=== PATIENT | female | born 1930 | race Caucasian/White ===

== ENCOUNTER 2016-10-21 21:17 | Emergency (ER) | payer MEDICARE, BC ==
[~2016-10-21 21:17] MED LIST: ASA5GR PO; ASAB PO; C5 PO; CAT1 PO; CENTRUM TAB1 TAB PO; CO Q-10 OTC PO; CO Q-10100 MG PO; COZAAR100 MG PO; FISH OIL1200 MG PO; GLUCOPHAGE1000 MG PO; GLUCOTRO10 PO; GLUCPH PO; LIPITOR20 PO; LIPITOR80 MG PO; LOP50 PO; LOPID6 PO; MAGNESIUM OTC PO; MULTIVIT/MIN PO; MULTIVITAMIN PO; NORV10 PO; PLAVIX PO; POTASSIUM 595 MG PO; PRESERVISION A1 EACH PO; PRESERVISION ARED PO; PROBIOTIC OTC PO; RESTORIL30 MG PO; SYN.05 PO; ULTRAM50 PO; VITE PO; ZOCOR20 PO
[2016-12-14] MEDS ORDERED: COUMADIN7.5 MG PO (16:00)
[2016-12-14] MEDS ORDERED: PRIN10 PO (16:08)
[2016-12-14] MEDS ORDERED: CRANBERRY500 MG PO (16:08)
[2016-12-14] MEDS ORDERED: VITC500 PO (16:09)
[2016-12-14] MEDS ORDERED: FISH OIL1200 MG PO (16:09)
== END 2016-10-21 21:24 | disposition home or self-care (01) ==
LOC: ER 21:17
DX: T18.128A Food in esophagus causing other injury, initial encounter (principal); I10 Essential (primary) hypertension; I48.91 Unspecified atrial fibrillation; E10.9 Type 1 diabetes mellitus without complications; I25.10 Atherosclerotic heart disease of native coronary artery without angina pectoris; Z88.2 Allergy status to sulfonamides; Z86.73 Personal history of transient ischemic attack (TIA), and cerebral infarction without residual deficits; Z79.82 Long term (current) use of aspirin; Z79.899 Other long term (current) drug therapy
CPT/HCPCS: 80048; 80053; 83735; 84484; 85025; 85610; 85730; 99284

== ENCOUNTER 2017-01-02 09:56 | Day surgery (SDC) | payer MEDICARE, BC ==
--- NOTE | ~2017-01-02 | EGD ---
EGD REPORT [facility] [address] [address] NAME: ROLA RUSSELL : [birth year] STATUS : [facility]#: [id number] AGE: 86 ADM/REG DATE : 01/02/17 MR#: [id number] REPORT SERV DATE: 01/25/17 DICTATED BY: CODY CEDILLO DATE: 01/25/17 REPORT STATUS : Draft [facility] DATE: 01/25/17 Endoscopy Center Patient Name: Rola Russell Date of : 1930 Attending MD: CODY CEDILLO MD Procedure Date No Time: 01/02/2017 Procedure: Upper GI endoscopy Indications: Dysphagia Referring MD: Ashkan Ibrahim Medicines: as per anesthesia Complications: No immediate complications. Procedure: Pre-Anesthesia Assessment: - ASA Grade Assessment: III - A patient with severe systemic disease. After obtaining informed consent, the endoscope was passed under direct vision. Throughout the procedure, the patient's blood pressure, pulse, and oxygen saturations were monitored continuously. The GIF H190 [id number] was introduced through the mouth, and advanced to the third part of duodenum. The upper GI endoscopy was accomplished without difficulty. The patient tolerated the procedure. Findings: A mild Schatzki ring (acquired) was found at the gastroesophageal junction. The scope was withdrawn. Dilation was performed with a Pisano dilator with no resistance at 44 Fr. Localized mild inflammation characterized by erythema was found in the gastric antrum. The cardia and gastric fundus were normal on retroflexion. The examined duodenum was normal. Impression: - Mild Schatzki ring. Dilated. - Gastritis. - Normal examined duodenum. Recommendation: - Use Prilosec (omeprazole) 20 mg PO daily for 1 month. Procedure Code(s): --- Professional --- 49345, Esophagogastroduodenoscopy, flexible, transoral; diagnostic, including collection of specimen(s) by brushing or washing, when performed (separate procedure) 23867, Dilation of esophagus, by unguided sound or bougie, single or multiple passes EGD REPORT [facility] [address] [place]. [address] NAME: ROLA RUSSELL : [birth year] STATUS : [facility] PAT#: [id number] AGE: 86 ADM/REG DATE : 01/02/17 MR#: [id number] REPORT SERV DATE: 01/25/17 DICTATED BY: CODY CEDILLO. DATE: 01/25/17 REPORT STATUS : Draft TRANSCRIBED BY: [employer] DATE: 01/25/17 Diagnosis Code(s): --- Professional --- K22.2, Esophageal obstruction K29.70, Gastritis, unspecified, without bleeding R13.10, Dysphagia, unspecified CPT copyright 2013 [employer]. All rights reserved. The codes documented in this report are preliminary and upon high pressure cleaner review may be revised to meet current compliance requirements. CODY CEDILLO MD 01/02/2017 1:50 PM This report has been signed electronically. Number of Addenda: 0 Note Initiated On: 01/02/2017 1:21 PM Scope Withdrawal Time 0 hours 0 minutes 0 seconds [address] [place] [address]
--- NOTE | ~2017-01-02 | EGD ---
EGD REPORT [facility] [address] [address] NAME: ROLA RUSSELL : [birth year] STATUS : [facility]#: [id number] AGE: 86 ADM/REG DATE : 01/02/17 MR#: [id number] REPORT SERV DATE: 01/25/17 DICTATED BY: CODY CEDILLO DATE: 01/25/17 REPORT STATUS : Draft [facility] DATE: 01/25/17 Endoscopy Center Patient Name: Rola Russell Date of : 1930 Attending MD: CODY CEDILLO MD Procedure Date No Time: 01/02/2017 Procedure: Upper GI endoscopy Indications: Dysphagia Referring MD: Ashkan Ibrahim Medicines: as per anesthesia Complications: No immediate complications. Procedure: Pre-Anesthesia Assessment: - ASA Grade Assessment: III - A patient with severe systemic disease. After obtaining informed consent, the endoscope was passed under direct vision. Throughout the procedure, the patient's blood pressure, pulse, and oxygen saturations were monitored continuously. The GIF H190 [id number] was introduced through the mouth, and advanced to the third part of duodenum. The upper GI endoscopy was accomplished without difficulty. The patient tolerated the procedure. Findings: A mild Schatzki ring (acquired) was found at the gastroesophageal junction. The scope was withdrawn. Dilation was performed with a Pisano dilator with no resistance at 44 Fr. Localized mild inflammation characterized by erythema was found in the gastric antrum. The cardia and gastric fundus were normal on retroflexion. The examined duodenum was normal. Impression: - Mild Schatzki ring. Dilated. - Gastritis. - Normal examined duodenum. Recommendation: - Use Prilosec (omeprazole) 20 mg PO daily for 1 month. Procedure Code(s): --- Professional --- 40757, Esophagogastroduodenoscopy, flexible, transoral; diagnostic, including collection of specimen(s) by brushing or washing, when performed (separate procedure) 46250, Dilation of esophagus, by unguided sound or bougie, single or multiple passes EGD REPORT [facility] [address] [place]. [address] NAME: ROLA RUSSELL : [birth year] STATUS : [facility] PAT#: [id number] AGE: 86 ADM/REG DATE : 01/02/17 MR#: [id number] REPORT SERV DATE: 01/25/17 DICTATED BY: CODY CEDILLO. DATE: 01/25/17 REPORT STATUS : Draft TRANSCRIBED BY: [employer] DATE: 01/25/17 Diagnosis Code(s): --- Professional --- K22.2, Esophageal obstruction K29.70, Gastritis, unspecified, without bleeding R13.10, Dysphagia, unspecified CPT copyright 2013 [employer]. All rights reserved. The codes documented in this report are preliminary and upon supervising film or videotape editor review may be revised to meet current compliance requirements. CODY CEDILLO MD 01/02/2017 1:50 PM This report has been signed electronically. Number of Addenda: 0 Note Initiated On: 01/02/2017 1:21 PM Scope Withdrawal Time 0 hours 0 minutes 0 seconds [address] [place] [address]
[~2017-01-02 09:56] MED LIST changes: +COUMADIN7.5 MG PO; +CRANBERRY500 MG PO; +PRIN10 PO; +VITC500 PO
[2017-01-02 10:26] LABS: INTERNATIONAL NORMAL RATI 1.2 UNITS (-); PROTIME (NOT ORD) 14.8 SEC (12.0-14.5)
== END 2017-01-02 23:59 | disposition home or self-care (01) ==
LOC: DMU 09:56
PROVIDERS: Anesthesiology; Internal Medicine Gastroenterology
PROC: 0D747ZZ Dilation of Esophagogastric Junction, Via Natural or Artificial Opening (ICD-10-PCS; principal; 2017-01-02 11:30)
DX: K22.2 Esophageal obstruction (principal); K29.70 Gastritis, unspecified, without bleeding; R13.10 Dysphagia, unspecified; H35.30 Unspecified macular degeneration; I10 Essential (primary) hypertension; E78.00 Pure hypercholesterolemia, unspecified; I25.10 Atherosclerotic heart disease of native coronary artery without angina pectoris; I48.91 Unspecified atrial fibrillation; E11.9 Type 2 diabetes mellitus without complications; E03.9 Hypothyroidism, unspecified; Z88.2 Allergy status to sulfonamides; Z86.73 Personal history of transient ischemic attack (TIA), and cerebral infarction without residual deficits; Z79.899 Other long term (current) drug therapy; Z79.84 Long term (current) use of oral hypoglycemic drugs; Z79.891 Long term (current) use of opiate analgesic; Z79.82 Long term (current) use of aspirin
CPT/HCPCS: 82962; 85610